=== PATIENT | male | born 1990 | race Caucasian/White ===

== ENCOUNTER → 2016-04-27 | Outpatient (CLI) | payer BC ==
[~2016-04-27] MED LIST: ACETAMINOPHEN TAB 500 MG TAB PO ONE; LORATADINE 10 MG TAB PO ONE; SODIUM CHLORIDE 0.9% 250 ML in EMPTY BAG 1 BAG IV PRN; SODIUM CHLORIDE 0.9% 500 ML in EMPTY BAG 1 BAG IV PRN
[2016-04-27 09:28] VITALS: TEMP 99.5
[2016-04-27 09:52] VITALS: RESP 18
[2016-04-27 11:02] VITALS: BP 118/58; PULSE 68
== END | disposition home or self-care (01) ==
LOC: PROCWHC3 09:06
DX: K50.80 Crohn's disease of both small and large intestine without complications (principal)
CPT/HCPCS: 96361; 96413; 96415; J1745

== ENCOUNTER 2016-06-22 09:00 | Outpatient (CLI) | payer BC ==
[~2016-06-22 09:00] MED LIST changes: -ACETAMINOPHEN TAB 500 MG TAB PO ONE; -LORATADINE 10 MG TAB PO ONE
[2016-06-22 09:33] VITALS: TEMP 98.1
[2016-06-22 10:47] VITALS: RESP 16
[2016-06-22 11:12] VITALS: BP 122/58; PULSE 74
== END 2016-06-22 14:02 | disposition home or self-care (01) ==
LOC: PROCWHC3 09:00
DX: K50.80 Crohn's disease of both small and large intestine without complications (principal)
CPT/HCPCS: 96413; 96415; J1745; 96361

== ENCOUNTER → 2016-08-22 | Outpatient (CLI) | payer BC ==
[2016-08-22 09:01] VITALS: TEMP 98
[2016-08-22 10:46] VITALS: BP 126/66; PULSE 69; RESP 16
== END | disposition home or self-care (01) ==
LOC: PROCWHC3 08:45
PROVIDERS: ATTEND Physician Assistant
DX: K50.80 Crohn's disease of both small and large intestine without complications (principal)
CPT/HCPCS: 96413; 96415; J1745

== ENCOUNTER → 2016-10-19 | Outpatient (CLI) | payer BC ==
[2016-10-19 09:14] VITALS: RESP 16; TEMP 97.8
[2016-10-19 10:52] VITALS: BP 97/62; PULSE 61
== END | disposition home or self-care (01) ==
LOC: PROCWHC3 08:47
PROVIDERS: ATTEND Physician Assistant
DX: K50.80 Crohn's disease of both small and large intestine without complications (principal)
CPT/HCPCS: 96413; 96415; J1745

== ENCOUNTER → 2016-12-21 | Outpatient (CLI) | payer BC ==
[~2016-12-21] MED LIST changes: -SODIUM CHLORIDE 0.9% 250 ML in EMPTY BAG 1 BAG IV PRN
[2016-12-21 09:15] VITALS: RESP 18; TEMP 97.6
[2016-12-21 10:46] VITALS: BP 118/73; PULSE 60
== END | disposition home or self-care (01) ==
LOC: PROCWHC3 08:44
PROVIDERS: ATTEND Physician Assistant
DX: K50.80 Crohn's disease of both small and large intestine without complications (principal)
CPT/HCPCS: 96361; 96413; 96415; J1745

== ENCOUNTER → 2017-02-15 | Outpatient (CLI) | payer BC ==
[2017-02-15 10:56] LABS: CH 31.5; CHCM 34.4; HDW 2.82; HGB 16.5 gm/dL (13.0-17.5); MCH 30.9 pg (25.0-35.0); MCHC 33.6 g/dL (31.0-37.0); Mean Platelet Volume 7.5; RBC 5.33 m/uL (4.30-5.90); RDW 12.6 % (11.5-15.5); WBC 9.3 k/uL (3.8-10.6)
[2017-02-15 11:06] VITALS: TEMP 98.6
[2017-02-15 11:50] VITALS: BP 113/59; PULSE 58; RESP 18
[2017-02-15 12:18] LABS: ALT 35 U/L (21-72); AST 25 U/L (17-59); Alkaline Phosphatase 64 U/L (38-126); Anion Gap 13 mmol/L; Bilirubin, Delta 0.4 mg/dL (0.0-0.2); Blood Urea Nitrogen 18 mg/dL (9-20); Calcium 9.8 mg/dL (8.4-10.2); Carbon Dioxide 23 mmol/L (22-30); Chloride 105 mmol/L (98-107); Glucose 121 mg/dL (74-99); Non-African American GFR(MDRD) >60 (>60 ml/min/1.73 sqM); Potassium 3.9 mmol/L (3.5-5.1); Sodium 141 mmol/L (137-145); Total Bilirubin 1.1 mg/dL (0.2-1.3); Total Protein 7.5 g/dL (6.3-8.2)
[2017-02-15 12:24] LABS: Erythrocyte Sedimentation Rate 2 mm/hr (0-15)
[2017-02-15 13:30] LABS: C Reactive Protein <5.0 mg/L (<10.0)
== END | disposition home or self-care (01) ==
LOC: PROCWHC3 10:02
PROVIDERS: ATTEND Physician Assistant
DX: K50.80 Crohn's disease of both small and large intestine without complications (principal)
CPT/HCPCS: 80053; 85652; 84443; 82607; 82248; 82746; 85027; 86140; 82306; 83036; 96413; 96415; 36415; J1745

== ENCOUNTER → 2017-04-24 | Outpatient (CLI) | payer BC | END | disposition home or self-care (01) | LOC: LABWHC1 12:51 | DX: K50.80 Crohn's disease of both small and large intestine without complications (principal) | CPT/HCPCS: 36415; 86480 ==

== ENCOUNTER 2017-09-30 08:41 | Day surgery (SDC) | payer BC ==
[2017-09-26 14:44] VITALS: BMI 39.5
[~2017-09-30 08:41] MED LIST changes: +LACTATED RINGERS 1,000 ML IV SCH; -SODIUM CHLORIDE 0.9% 500 ML in EMPTY BAG 1 BAG IV PRN
[2017-09-30 09:10] VITALS: RESP 16; TEMP 97.6
[2017-09-30] MEDS ORDERED: LIDOCAINE 1% 20 ML VIAL (10MG/ML) FOR IV START INTRADERMA ONE (09:14)
[2017-09-30] MEDS ORDERED: PROPOFOL 10 MG/ML 20 ML VIAL IV ONE (10:08)
[2017-09-30 10:33] VITALS: PULSE 71
--- NOTE | 2017-09-30 10:38 | P.PCN ---
Date of Procedure: 09/30/17 Procedure(s) Performed: Procedure: Colonoscopy and biopsy. Preoperative diagnosis: History of Crohn's disease. Postoperative diagnosis: Exam within colon and terminal ileum within normal limits, biopsies obtained. Preparation: HalfLytely prep. Sedation: Was provided by anesthesia. Brief clinical history: The patient is a 27-year-old male who was diagnosed at age 13 with Crohn's of the colon and small intestine and has required biologic therapy for the last 3 or 4 years in the form of Remicade. Prior to that he was on Imuran and anti-inflammatory medications. The patient has been doing well without any abdominal complaints or change in bowel habits. This evaluation as part of his surveillance because of the duration of his disease and to assess his on admission. Procedure: With the patient on his left lateral decubitus position and after informed consent and adequate sedation, the perianal area was inspected and it did not show any fissures or fistulas. There were no masses felt on digital rectal examination. The Olympus CFQ 160L video colonoscope was then inserted in the rectum in the usual fashion and advanced to the cecum. I intubated the ileocecal valve and examined the terminal ileum as well. Terminal ileum and colon appeared healthy with no edema erythema friability ulceration and exudation or spontaneous bleeding. No polyps or tumors were seen or any obvious diverticular disease or other pathology. I retroflexed the endoscope in the rectum before the endoscope was withdrawn and I obtained biopsies from the terminal ileum and randomly from the colon as well. The patient tolerated the procedure well. Plan: The patient was reassured and I discussed with him and with his father who was with him today. Will continue with the current regimen and follow-up plans. Because of the duration of his illness I will be considering colonoscopy in 3-5 years.
[2017-09-30 11:01] VITALS: BP 119/79
== END 2017-09-30 11:15 | disposition home or self-care (01) ==
LOC: ORWHC2ENDO 08:41
DX: K50.80 Crohn's disease of both small and large intestine without complications (principal); Z79.899 Other long term (current) drug therapy
CPT/HCPCS: 88305; 45380; J2704

== ENCOUNTER 2019-07-04 04:10 | Inpatient (IN) | payer BC ==
--- NOTE | 2019-07-04 04:38 | ED ---
Psych HPI - General Source: patient Mode of arrival: ambulatory - History of Present Illness MD Complaint: suicidal ideation, feels depressed -: month(s) Associated Psychiatric Symptoms: depression, suicidal ideation History of same: No Quality: changing over time Improves With: none Worsens With: none Associated Symptoms: denies other symptoms <Anibal Weinberg - Last Filed: 07/04/19 04:53> <Star Lee - Last Filed: 07/04/19 08:00> - General Chief Complaint: Psychiatric Symptoms Stated Complaint: Mental Health Time Seen by Provider: 07/04/19 04:24 - History of Present Illness Initial Comments: This patient is 29-year-old man who presents to be evaluated for worsening depression as well as some suicidal ideation. The patient states that his mood is been worsening going on for probably a couple months now. Patient states that he has also started having thoughts of suicide. (Anibal Weinberg) - Related Data Home Medications Medication Instructions Recorded Confirmed Cyanocobalamin [Vitamin B-12] 2,000 mcg PO DAILY 07/18/15 09/30/17 Iron 18 mg PO DAILY 07/18/15 09/30/17 inFLIXimab [Remicade] 600 mg IVPB DIRECTED 04/27/16 09/30/17 Cholecalciferol [Vitamin D3] 5,000 unit PO DAILY 09/26/17 09/30/17 Allergies Allergy/AdvReac Type Severity Reaction Status Date / Time No Known Allergies Allergy Verified 09/26/17 14:34 Review of Systems ROS Other: All systems not noted in ROS Statement are negative. Constitutional: Denies: fever Respiratory: Denies: cough, dyspnea Cardiovascular: Denies: chest pain, palpitations, edema Gastrointestinal: Denies: abdominal pain, vomiting, diarrhea Musculoskeletal: Denies: back pain Skin: Denies: rash Neurological: Denies: headache, weakness Psychiatric: Reports: depression, suicidal thoughts. Denies: auditory hallucinations, visual hallucinations, homicidal thoughts <Anibal Weinberg - Last Filed: 07/04/19 04:53> ROS Other: All systems not noted in ROS Statement are negative. <Star Lee - Last Filed: 07/04/19 08:00> ROS Statement: Those systems with pertinent positive or pertinent negative responses have been documented in the HPI. Past Medical History Past Medical History: Diabetes Mellitus Additional Past Medical History / Comment(s): Chron's disease History of Any Multi-Drug Resistant Organisms: None Reported Past Surgical History: No Surgical Hx Reported Additional Past Surgical History / Comment(s): Colonoscopy X3-4. Past Anesthesia/Blood Transfusion Reactions: No Reported Reaction Past Psychological History: No Psychological Hx Reported Smoking Status: Current every day smoker Past Alcohol Use History: Rare Past Drug Use History: Marijuana - Past Family History Mother Family Medical History: No Reported History <Anibal Weinberg - Last Filed: 07/04/19 04:53> General Exam Limitations: no limitations General appearance: alert, in no apparent distress Head exam: Present: atraumatic, normocephalic Eye exam: Present: normal appearance Respiratory exam: Present: normal lung sounds bilaterally. Absent: respiratory distress, wheezes, rales, rhonchi, stridor Cardiovascular Exam: Present: regular rate, normal rhythm, normal heart sounds. Absent: systolic murmur, diastolic murmur, rubs, gallop GI/Abdominal exam: Present: soft. Absent: distended, tenderness, guarding Neurological exam: Present: alert Psychiatric exam: Present: depressed, suicidal ideation. Absent: agitated, anxious, flat affect, manic, homicidal ideation Skin exam: Present: warm, dry, intact, normal color. Absent: rash <Anibal Weinberg - Last Filed: 07/04/19 04:53> Course Vital Signs 07/04/19 07/04/19 04:14 06:56 Temperature 98.5 F 98.1 F Pulse Rate 90 76 Respiratory 18 16 Rate Blood Pressure 168/112 132/87 O2 Sat by Pulse 97 98 Oximetry Medical Decision Making <Star Lee - Last Filed: 07/04/19 08:00> - Medical Decision Making I went in and evaluated the patient and determined that he did need to stay so I filled out a clinical certification. Patient will be admitted. (Star Lee) - Lab Data Lab Results 07/04/19 Range/Units 06:51 POC Glucose (mg/dL) 123 H (75-99) mg/dL POC Glu Field Project Manager ID Ernst, Tyler Disposition <Anibal Weinberg - Last Filed: 07/04/19 04:53> Time of Disposition: 08:00 <tSar Lee - Last Filed: 07/04/19 08:00> Clinical Impression: Suicidal ideation, Depression Disposition: ADMITTED IP TO THIS HOSP Referrals: Mart Marquez MD [Primary Care Provider] - 1-2 days
[2019-07-04 06:53] LABS: Glucose,Whole Blood 123 mg/dL (75-99)
[2019-07-04] MEDS ORDERED: MAGNESIUM HYDROXIDE 2,400 MG/10 ML CUP PO PRN (08:39)
[2019-07-04] MEDS ORDERED: ACETAMINOPHEN TAB 325 MG TAB PO PRN (08:39)
[2019-07-04] MEDS ORDERED: MAG HYDROX/AL HYDROX/SIMETH 30 ML CUP PO PRN (08:39)
[2019-07-04] MEDS ORDERED: INSULIN DETEMIR (LEVEMIR) 100 UNIT/ML SYR SQ SCH (09:30)
[2019-07-04 09:37] LABS: Glucose,Whole Blood 113 mg/dL (75-99)
[2019-07-04] MEDS: CHOLECALCIFEROL 1,000 UNIT TAB PO SCH (09:41)
[2019-07-04] MEDS: LISINOPRIL 5 MG TAB PO SCH (09:41)
[2019-07-04] MEDS: metFORMIN 500 MG TAB PO SCH ×2 (09:42→17:50)
[2019-07-04] MEDS: NICOTINE 14MG/24HR PATCH TRANSDERM SCH ×2 (09:42→15:51)
[2019-07-04 12:40] LABS: Glucose,Whole Blood 112 mg/dL (75-99)
[2019-07-04] MEDS: INSULIN ASPART (NovoLOG) 100 UNIT/ML VIAL SQ SCH ×3 (12:40→20:18)
--- NOTE | 2019-07-04 12:42 | P.CONS ---
History of Present Illness - History of Present Illness This is a pleasant 29 years old male with past medical history of diabetes m ellitus, hypertension, Crohn's disease. He was admitted to the mental health unit for signs symptoms of depression with suicidal ideation. Medical consult was requested for medical management. Patient denies any physical complaints to me, like no chest pain or dyspnea, no headache, no abdominal pain, no change in urine or bowel habits, no nausea vomiting. No fever and patient smokes about 1 pack per day and occasional marijuana, no alcohol or illicit tracts as per patient Patient is counseled to quit alcohol Review of Systems CONSTITUTIONAL: No fever, no malaise, no fatigue. HEENT: No recent visual problems or hearing problems. Denied any sore throat. CARDIOVASCULAR: No orthopnea, PND, no palpitations, no syncope. PULMONARY: No shortness of breath, no cough, no hemoptysis. GASTROINTESTINAL: No diarrhea, no nausea, no vomiting, no abdominal pain. Normoactive bowel sounds. NEUROLOGICAL: No headaches, no weakness, no numbness. HEMATOLOGICAL: Denies any bleeding or petechiae. GENITOURINARY: Denies any burning micturition, frequency, or urgency. MUSCULOSKELETAL/RHEUMATOLOGICAL: Denies any joint pain, swelling, or any muscle pain. ENDOCRINE: Denies any polyuria or polydipsia. Past Medical History Past Medical History: Diabetes Mellitus Additional Past Medical History / Comment(s): Chron's disease History of Any Multi-Drug Resistant Organisms: None Reported Past Surgical History: No Surgical Hx Reported Additional Past Surgical History / Comment(s): Colonoscopy X3-4. Past Anesthesia/Blood Transfusion Reactions: No Reported Reaction Past Psychological History: No Psychological Hx Reported Smoking Status: Current every day smoker Past Alcohol Use History: Rare Past Drug Use History: Marijuana - Past Family History Mother Family Medical History: No Reported History Medications and Allergies Home Medications Medication Instructions Recorded Confirmed Type Cyanocobalamin [Vitamin B-12] 2,000 mcg PO DAILY 07/18/15 07/04/19 History inFLIXimab [Remicade] 600 mg IVPB DIRECTED 04/27/16 09/30/17 History Cholecalciferol [Vitamin D3] 5,000 unit PO DAILY 09/26/17 07/04/19 History Insulin Glargine [Lantus] 20 unit SQ DAILY 07/04/19 07/04/19 History Lisinopril [Prinivil] 5 mg PO DAILY 07/04/19 07/04/19 History metFORMIN HCL 1,000 mg PO BID 07/04/19 07/04/19 History Allergies Allergy/AdvReac Type Severity Reaction Status Date / Time No Known Allergies Allergy Verified 09/26/17 14:34 Physical Exam Vitals: Vital Signs Temp Pulse Pulse Resp BP BP Pulse Ox 07/04/19 10:02 97.4 F L 78 20 145/81 07/04/19 06:56 98.1 F 76 16 132/87 98 07/04/19 04:14 98.5 F 90 18 168/112 97 Intake and Output 07/03/19 07/04/19 07/04/19 22:59 06:59 14:59 Other: Weight 122.47 kg 122.47 kg GENERAL: The patient is alert and oriented x3, not in any acute distress. Well developed, well nourished. HEENT: Pupils are round and equally reacting to light. EOMI. No scleral icterus. No conjunctival pallor. Normocephalic, atraumatic. No pharyngeal erythema. No thyromegaly. CARDIOVASCULAR: S1 and S2 present. No murmurs, rubs, or gallops. PULMONARY: Chest is clear to auscultation, no wheezing or crackles. ABDOMEN: Soft, nontender, nondistended, normoactive bowel sounds. No palpable organomegaly. MUSCULOSKELETAL: No joint swelling or deformity. EXTREMITIES: No cyanosis, clubbing, or pedal edema. NEUROLOGICAL: Gross neurological examination did not reveal any focal deficits. SKIN: No rashes. No petechiae Results Labs: Abnormal Lab Results - Last 24 Hours (Table) 07/04/19 07/04/19 Range/Units 06:51 09:35 POC Glucose (mg/dL) 123 H 113 H (75-99) mg/dL Assessment and Plan Assessment: Depression and suicidal ideation and other psychiatric illnesses: As per primary psych team Nicotine dependence: Patient is counseled, he wants to quit. Nicotine patches ordered Type 2 diabetes mellitus, continue with metformin and insulin Essential hypertension: Continue with lisinopril History of Crohn's disease, not an active issue DVT prophylaxis: Low risk, patient is mobile. No need for heparin recommend patient follow up with his PCP Dr. Marquez in 1 week and patient was instructed with the same Thank you for consulting us, we will see the patient on as-needed basis. Please feel free to contact us for any further question or clarification
--- NOTE | 2019-07-04 15:13 | P.HP ---
Psychiatric H&P - . H&P Date: 07/04/19 History & Physical: Allergies Allergy/AdvReac Type Severity Reaction Status Date / Time No Known Allergies Allergy Verified 09/26/17 14:34 Vital Signs Temp 97.4 F L 07/04/19 10:02 Pulse 78 07/04/19 10:02 Resp 20 07/04/19 10:02 BP 145/81 07/04/19 10:02 Pulse Ox 98 07/04/19 06:56 Intake & Output 07/03/19 07/04/19 07/04/19 18:59 06:59 18:59 Weight 122.47 kg 122.47 kg Laboratory Last Values POC Glucose (mg/dL) 112 mg/dL (75-99) H 07/04/19 12:38 POC Glu Plant Maintenance Mechanic ID Vanessa Wilder 07/04/19 12:38 07/04/19 15:06 IDENTIFYING DATA: 29-year-old single male patient HPI: Patient admitted to the inpatient psychiatric unit on an involuntary basis. Petition was done by registered nurse stating "patient admitted to this RN that he is having active suicidal thoughts with various plans, also admitted to not feeling safe to leave the ER as he may act on his thoughts." Patient reports that he has been having depression and his anxiety levels been really increased. He states that his girlfriend recently walked out 3-4 days ago and he has not had contact with her since. This is had him stressed out. He states that things were very slow at his work and he came to the hospital in the a.m. because he was having thoughts of having an emotional breakdown. Says he didn't want to feel like that. He says he didn't want to . It was more or less the anxiety that he was dealing with. He says later in the session that he didn't want to continue to live like that or feel like that, didn't want to impulsively do something like run a red light. He has not had much of an appetite lately is also been on intentionally undereating because his blood sugar has not been under good control. PAST PSYCHIATRIC HISTORY: He has never had any history of psychiatric treatment. He has had some periods of situational depression. He also does give a history of anxiety with over thinking things. He denies any history of suicide attempts. PMH: Diabetes mellitus, Crohn's disease which she says right now is in remission. He does take Remicade infusions. He was recently hospitalized for abscesses due to lowered immune system. ALLERGIES: No known ALLERGIES. MEDICATIONS: Tylenol when necessary, Maalox when necessary, vitamin D3, Levemir, Zestril, Ativan when necessary, milk of magnesia when necessary, Glucophage, Hab itrol patch CHEMICAL DEPENDENCY HISTORY: Patient states in a year he can count on one hand his amount of alcohol use. On average he has underwent one pack per day of smoking cigarettes but lately has been increased. FAMILY PSYCHIATRIC HISTORY: Denies FAMILY CHEMICAL DEPENDENCY HISTORY: None known at this time. SOCIAL HISTORY: He did live with his girlfriend in a home but she has now left several is living by himself. He does not have any children. He has never been . He has one brother. He currently works at [employer] full-time. MENTAL STATUS EXAM: He is alert and cooperative with the interview. His mood is described as "self pity." He is tearful at times during the session. He denies any history of hallucinations. He denies any current thoughts of harm to self or others. No active evidence of psychosis. I do not note any disorder agitation, do not note any significant memory disturbance. His insight is adequate, judgment shows evidence evidence of recent impairment. STRENGTHS/WEAKNESSES: Strengthssome supports; weaknessescoping skills INTELLECTUAL FUNCTIONING: Average IMPRESSIONS: Unspecified depressive disorder; unspecified anxiety disorder, rule out generalized anxiety disorder PLAN: Patient was admitted to the inpatient psychiatric unit on an involuntary basis, he is agreeable to sign an adult formal voluntary form. He'll be placed on SP 15 minute precautions. Baseline laboratory workup will be done the patient and medical consultation will be ordered. He'll participate in group and activity therapies. We will initiate low dose of Zoloft to help both depressive and anxiety components, we'll start low-dose and monitor for any medication side effects. We will look into support systems. Estimated length of stay is 3-5 days. Prognosis is guarded.
[2019-07-04] MEDS: SERTRALINE 25 MG TAB PO SCH (15:50)
[2019-07-04 17:30] LABS: Glucose,Whole Blood 111 mg/dL (75-99)
[2019-07-04] MEDS: INSULIN DETEMIR (LEVEMIR) 100 UNIT/ML SYR SQ SCH (17:39)
[2019-07-04 19:58] LABS: Glucose,Whole Blood 195 mg/dL (75-99)
[2019-07-05 06:30] VITALS: RESP 16
[2019-07-05 07:50] LABS: Glucose,Whole Blood 126 mg/dL (75-99)
[2019-07-05] MEDS: metFORMIN 500 MG TAB PO SCH ×3 (07:57→17:32)
[2019-07-05] MEDS: CHOLECALCIFEROL 1,000 UNIT TAB PO SCH (07:57)
[2019-07-05] MEDS: NICOTINE 14MG/24HR PATCH TRANSDERM SCH (07:57)
[2019-07-05] MEDS: SERTRALINE 25 MG TAB PO SCH (07:58)
[2019-07-05] MEDS: LISINOPRIL 5 MG TAB PO SCH (07:58)
[2019-07-05] MEDS: INSULIN ASPART (NovoLOG) 100 UNIT/ML VIAL SQ SCH ×4 (08:01→20:21)
[2019-07-05 08:28] LABS: Basophils # (A) 0.1 k/uL (0-0.2); Basophils % (A) 1 %; Eosinophils # (A) 0.5 k/uL (0-0.7); Eosinophils % (A) 3 %; HCT 51.9 % (39.0-53.0); HGB 17.2 gm/dL (13.0-17.5); Lymphocytes # (A) 4.2 k/uL (1.0-4.8); Lymphocytes % (A) 28 %; MCH 28.9 pg (25.0-35.0); MCHC 33.1 g/dL (31.0-37.0); MCV 87.5 fL (80.0-100.0); Mean Platelet Volume 7.5; Monocytes # (A) 0.8 k/uL (0-1.0); Monocytes % (A) 5 %; Neutrophils # (A) 9.2 k/uL (1.3-7.7); Neutrophils % (A) 61 %; Platelet Count 430 k/uL (150-450); RBC 5.93 m/uL (4.30-5.90)
[2019-07-05 08:31] LABS: ALT 22 U/L (4-49); AST 24 U/L (17-59); African American GFR (CKD) >90 (>60 ml/min/1.73 sqM); Alkaline Phosphatase 92 U/L (38-126); Anion Gap 14 mmol/L; Blood Urea Nitrogen 11 mg/dL (9-20); Calcium 10.1 mg/dL (8.4-10.2); Carbon Dioxide 22 mmol/L (22-30); Chloride 102 mmol/L (98-107); Glucose 116 mg/dL (74-99); Non-African American GFR(CKD) >90 (>60 ml/min/1.73 sqM); Potassium 4.3 mmol/L (3.5-5.1); Sodium 138 mmol/L (137-145); Total Bilirubin 1.4 mg/dL (0.2-1.3); Total Protein 8.4 g/dL (6.3-8.2)
[2019-07-05 12:19] LABS: Glucose,Whole Blood 181 mg/dL (75-99)
--- NOTE | 2019-07-05 15:27 | P.PN ---
Progress Note - Text Progress Note Date: 07/05/19 Interval history: Patient is seen again in cross coverage today. He seems to be tolerating the Zoloft fine. He seems to describe feeling less overwhelmed, less anxious and more able to focus on getting help. He does describe feeling that he is ready for discharge soon. He talks about a support person being a friend that he had made contact with prior to hospitalization. Mental status exam: He is alert and cooperative with the interview. His speech is fluent, not rapid or pressured. Overall his mood seems to be improved and seems to have less level of anxiety. He does not verbalize any current thoughts of harm to self and does not voice any thoughts of harm to others. No evidence of active psychosis or agitation. Plan: Patient will be maintained on Zoloft, continue to monitor for any medication side effects and monitor his ongoing response to treatment.
[2019-07-05 17:27] LABS: Glucose,Whole Blood 172 mg/dL (75-99)
[2019-07-05] MEDS: INSULIN DETEMIR (LEVEMIR) 100 UNIT/ML SYR SQ SCH (17:30)
[2019-07-05 19:46] LABS: Glucose,Whole Blood 275 mg/dL (75-99)
[2019-07-06] MEDS: LORazepam 1 MG TAB PO PRN ×2 (01:55→22:20)
[2019-07-06] MEDS: INSULIN ASPART (NovoLOG) 100 UNIT/ML VIAL SQ SCH ×4 (08:11→20:14)
[2019-07-06] MEDS: NICOTINE 14MG/24HR PATCH TRANSDERM SCH (08:11)
[2019-07-06] MEDS: metFORMIN 500 MG TAB PO SCH ×2 (08:12→18:01)
[2019-07-06] MEDS: CHOLECALCIFEROL 1,000 UNIT TAB PO SCH (08:12)
[2019-07-06] MEDS: LISINOPRIL 5 MG TAB PO SCH (08:12)
[2019-07-06] MEDS: SERTRALINE 25 MG TAB PO SCH (08:12)
[2019-07-06 08:22] LABS: Glucose,Whole Blood 107 mg/dL (75-99)
[2019-07-06 11:16] LABS: Hemoglobin A1C 8.5 % (4.0-6.0)
[2019-07-06 12:28] LABS: Glucose,Whole Blood 147 mg/dL (75-99)
--- NOTE | 2019-07-06 13:05 | P.PN ---
Subjective Progress Note Date: 07/06/19 The patient seen in the chart was reviewed. The patient reports feeling a little better. He reports feeling less depressed and anxious. He denies any negative thoughts at this time. The patient reports difficulty falling asleep last night but was able to sleep for 6 hours. He reports good appetite. The patient is focused on wanting to get discharged as soon as possible. The patient reports compliance with this treatment and has been cooperative and pleasant during the interview. The patient denies any auditory or visual hallucinations. He denies any active suicidal homicidal or paranoid ideations at this time. Objective - Vital Signs Vital signs: Vital Signs Temp 98.3 F 07/06/19 06:31 Pulse 68 07/06/19 06:31 Resp 16 07/06/19 06:31 BP 125/70 07/06/19 06:31 Pulse Ox 97 07/06/19 06:31 Intake & Output 07/05/19 07/06/19 07/06/19 18:59 06:59 18:59 Weight 123 kg - Exam Mental Status Exam: General Appearance: Patient appears to be stated age is alert, directable. fPatient has fair eye contact. Behavior: Patient is seated without any agitated behavior. Speech: Patient's speech is goal-directed and nonpressured. soft tone. Mood/Affect: Patient reports their mood/anxiety is improving and affect is congruent Suicidality/Homicidality: Patient reports not having suicidal or homicidal ideation. Perceptions: Patient reports no auditory or visual hallucinations. Though content/process: Denies any delusions or Paranoia Memory and concentration: AOX3, grossly intact for the purposes of this session. Judgment and insight: Fair - Labs CBC & Chem 7: 07/05/19 08:02 07/05/19 08:02 Labs: Abnormal Lab Results - Last 24 Hours (Table) 07/05/19 07/05/19 07/05/19 Range/Units 08:02 17:25 19:45 POC Glucose (mg/dL) 172 H 275 H (75-99) mg/dL Hemoglobin A1c 8.5 H (4.0-6.0) % 07/06/19 07/06/19 Range/Units 08:10 12:27 POC Glucose (mg/dL) 107 H 147 H (75-99) mg/dL Hemoglobin A1c (4.0-6.0) % Assessment and Plan Assessment: Generalized anxiety disorder Major depressive disorder Plan: PLAN: Continue inpatient level of care due to need for further stabilization on medications Provide the patient individual, group therapy, substance use disorder counseling to give better insight and learn coping skills. Medications: Discussed increase in Zoloft to 50 mg by mouth every morning, the patient declined at this time. Continue Zoloft 25 mg by mouth every morning and monitor closely for any signs or symptoms getting worse or side effects on the medications. Will initiate discharge planning Discharge patient to OUTPATIENT services upon a stabilization Expected LOS: 3-5 days
[2019-07-06 17:40] LABS: Glucose,Whole Blood 201 mg/dL (75-99)
[2019-07-06] MEDS: INSULIN DETEMIR (LEVEMIR) 100 UNIT/ML SYR SQ SCH (17:52)
[2019-07-06 20:11] LABS: Glucose,Whole Blood 267 mg/dL (75-99)
[2019-07-07 07:55] LABS: Glucose,Whole Blood 118 mg/dL (75-99)
[2019-07-07] MEDS: INSULIN ASPART (NovoLOG) 100 UNIT/ML VIAL SQ SCH ×4 (07:57→20:09)
[2019-07-07] MEDS: metFORMIN 500 MG TAB PO SCH ×2 (08:51→17:50)
[2019-07-07] MEDS: LISINOPRIL 5 MG TAB PO SCH (08:51)
[2019-07-07] MEDS: CHOLECALCIFEROL 1,000 UNIT TAB PO SCH (08:51)
[2019-07-07] MEDS: NICOTINE 14MG/24HR PATCH TRANSDERM SCH (08:51)
[2019-07-07] MEDS: SERTRALINE 25 MG TAB PO SCH (08:51)
--- NOTE | 2019-07-07 12:25 | P.PN ---
Subjective Progress Note Date: 07/07/19 The patient seen in the chart was reviewed. The patient continues to report improvement in mood and functioning and tends to minimize his symptoms. The patient reports periods of anxiety and reports shaking his legs when anxious. The patient reports fair sleep and appetite. He remained focused on wanting to get get discharged from the hospital as soon as possible. The patient reports compliance with the treatment but believes that he would do better after he is discharged from the hospital. The patient shows limited insight into his loss. The patient denies any auditory or visual hallucinations. He denies any active suicidal homicidal or paranoid ideations at this time. Objective - Vital Signs Vital signs: Vital Signs Temp 97.7 F 07/07/19 06:05 Pulse 95 07/07/19 09:03 Resp 16 07/07/19 09:03 BP 137/87 07/07/19 09:03 Pulse Ox 99 07/07/19 06:05 - Exam Mental Status Exam: General Appearance: Patient appears to be stated age is alert, directable. fPatient has fair eye contact. Behavior: Patient is seated without any agitated behavior. Speech: Patient's speech is goal-directed and nonpressured. soft tone. Mood/Affect: Patient reports their mood/anxiety is improving and affect is congruent Suicidality/Homicidality: Patient reports not having suicidal or homicidal ideation. Perceptions: Patient reports no auditory or visual hallucinations. Though content/process: Denies any delusions or Paranoia Memory and concentration: AOX3, grossly intact for the purposes of this session. Judgment and insight: Fair - Labs CBC & Chem 7: 07/05/19 08:02 07/05/19 08:02 Labs: Abnormal Lab Results - Last 24 Hours (Table) 07/06/19 07/06/19 07/06/19 Range/Units 12:27 17:39 20:06 POC Glucose (mg/dL) 147 H 201 H 267 H (75-99) mg/dL 07/07/19 Range/Units 07:53 POC Glucose (mg/dL) 118 H (75-99) mg/dL Assessment and Plan Assessment: Generalized anxiety disorder Major depressive disorder Plan: PLAN: Continue inpatient level of care due to need for further stabilization on medica tions Provide the patient individual, group therapy, substance use disorder counseling to give better insight and learn coping skills. Medications: Discussed increase in Zoloft to 50 mg by mouth every morning, the patient declined at this time. Continue Zoloft 25 mg by mouth every morning and monitor closely for any signs or symptoms getting worse or side effects on the medications. Will initiate discharge planning Discharge patient to OUTPATIENT services upon a stabilization Expected LOS: 3-5 days
[2019-07-07 12:31] LABS: Glucose,Whole Blood 157 mg/dL (75-99)
[2019-07-07 17:36] LABS: Glucose,Whole Blood 175 mg/dL (75-99)
[2019-07-07] MEDS: INSULIN DETEMIR (LEVEMIR) 100 UNIT/ML SYR SQ SCH (17:48)
[2019-07-07 20:01] LABS: Glucose,Whole Blood 262 mg/dL (75-99)
[2019-07-07] MEDS: LORazepam 1 MG TAB PO PRN (23:02)
[2019-07-08 07:04] VITALS: TEMP 97.6
[2019-07-08 07:51] LABS: Glucose,Whole Blood 133 mg/dL (75-99)
[2019-07-08] MEDS: INSULIN ASPART (NovoLOG) 100 UNIT/ML VIAL SQ SCH ×2 (08:16→12:12)
[2019-07-08] MEDS: CHOLECALCIFEROL 1,000 UNIT TAB PO SCH (08:19)
[2019-07-08] MEDS: metFORMIN 500 MG TAB PO SCH (08:19)
[2019-07-08] MEDS: SERTRALINE 25 MG TAB PO SCH (08:19)
[2019-07-08] MEDS: LISINOPRIL 5 MG TAB PO SCH (08:19)
[2019-07-08] MEDS: NICOTINE 14MG/24HR PATCH TRANSDERM SCH (08:19)
[2019-07-08 08:23] VITALS: BP 123/97; PULSE 89
--- NOTE | 2019-07-08 10:47 | P.DS ---
Providers Date of admission: 07/04/19 08:31 Attending physician: Della Jade MD Consults: 07/04/19 08:39 Consult Physician Routine Consulting Provider: Mart Marquez Consult Reason/Comments: H and P Do you want consulting provider notified?: Yes Primary care physician: Mart Marquez Hospital Course: Discharge Diagnosis: Major depressive disorder recurrent severe. Generalized anxiety disorder. Hospital Course: Patient admitted to the inpatient psychiatric unit [facility] on an involuntary basis. Petition was done by registered nurse stating "patient admitted to this RN that he is having active suicidal thoughts with various plans, also admitted to not feeling safe to leave the ER as he may act on his thoughts." Patient reports that he has been having depression and his anxiety levels been really increased. He states that his girlfriend recently walked out 3-4 days ago and he has not had contact with her since. This is had him stressed out. He states that things were very slow at his work and he came to the hospital in the a.m. because he was having thoughts of having an emotional breakdown. Says he didn't want to feel like that. He says he didn't want to . It was more or less the anxiety that he was dealing with. He says later in the session that he didn't want to continue to live like that or feel like that, didn't want to impulsively do something like run a red light. He has not had much of an appetite lately is also been on intentionally undereating because his blood sugar has not been under good control. PAST PSYCHIATRIC HISTORY: He has never had any history of psychiatric treatment. He has had some periods of situational depression. He also does give a history of anxiety with over thinking things. He denies any history of suicide attempts. PMH: Diabetes mellitus, Crohn's disease which she says right now is in remission. He does take Remicade infusions. He was recently hospitalized for abscesses due to lowered immune system. ALLERGIES: No known ALLERGIES. MEDICATIONS: Tylenol when necessary, Maalox when necessary, vitamin D3, Levemir, Zestril, Ativan when necessary, milk of magnesia when necessary, Glucophage, Habitrol patch CHEMICAL DEPENDENCY HISTORY: Patient states in a year he can count on one hand his amount of alcohol use. On average he has underwent one pack per day of smoking cigarettes but lately has been increased. FAMILY PSYCHIATRIC HISTORY: Denies FAMILY CHEMICAL DEPENDENCY HISTORY: None known at this time. SOCIAL HISTORY: He did live with his girlfriend in a home but she has now left several is living by himself. He does not have any children. He has never been . He has one brother. He currently works at [email or web address] full-time. MENTAL STATUS EXAM: He is alert and cooperative with the interview. His mood is described as "self pity." He is tearful at times during the session. He denies any history of hallucinations. He denies any current thoughts of harm to self or others. No active evidence of psychosis. I do not note any disorder agitation, do not note any significant memory disturbance. His insight is adequate, judgment shows evidence evidence of recent impairment. STRENGTHS/WEAKNESSES: Strengthssome supports; weaknessescoping skills INTELLECTUAL FUNCTIONING: Average Patient was admitted on a involuntary basis, placed on routine observation in group and activity therapy were ordered. He signed in voluntarily later on. Patient was also ordered routine laboratory studies, glucose checks with a sliding scale and a medical consultation was also ordered. Patient also was returned to his prior medications for his medical problems. The patient was started on sertraline 25 mg by mouth daily. He tolerated the medication without any significant side effects. He reported improvement in his mood and functioning. Patient was attending groups and activities, sleeping and eating well and reported that his mood had improved. Patient reported no side effects from the medication. Discharge plans were initiated. Follow on family meeting was done with the patient's friend. Patient will follow up at [facility]. Patient was agreeable with the plan for discharge and will follow up at [[facility]] Risk Assessment: Patient's risk for readmission is moderate to the patient not be compliant with medications and follow-up care, use alcohol and/or drugs Discharge Plan: Patient will be discharged [today] [facility] and will follow up at the [facility] clinic for his medical problems. Patient was encouraged to be compliant with medications and follow-up appointments and to avoid all alcohol and drugs. Patient Condition at Discharge: Stable Assessment: Discharge Mental Status: Appearance/Attitude: Patient is neatly and appropriately dressed, makes eye contact and was cooperative. Behavior: Patient did not display any psychomotor agitation or retardation. Speech/Language: Patient's speech was spontaneous of normal volume and rhythm and he was coherent Thought Process: Patient was goal-directed there is no evidence of loose association or flight of ideas Thought Content: Patient denied any auditory or visual hallucinations no delusions or paranoid ideation were elicited. Suicidal/Homicidal Ideation: Patient denies any current suicidal or homicidal ideation Sensorium/Cognition: Patient is alert and oriented to person, place, and time and his recent and remote memory were grossly intact Mood/Affect: Patient's mood is more positive and his affect is appropriate to his mood Insight/Judgment: Patient's insight and judgment are fair Patient Condition at Discharge: Stable Plan - Discharge Summary New Discharge Prescriptions: New Nicotine 14Mg/24Hr Patch [Habitrol] 1 patch TRANSDERM DAILY #14 patch INSULIN ASPART (NovoLOG) [NovoLOG (formulary)] 0 unit SQ ACHS vial Lisinopril [Zestril] 5 mg PO DAILY tab Sertraline [Zoloft] 25 mg PO DAILY #30 tab Continue Cyanocobalamin [Vitamin B-12] 2,000 mcg PO DAILY inFLIXimab [Remicade] 600 mg IVPB DIRECTED Cholecalciferol [Vitamin D3] 5,000 unit PO DAILY Insulin Glargine [Lantus] 20 unit SQ DAILY metFORMIN HCL 1,000 mg PO BID Discontinued Lisinopril [Prinivil] 5 mg PO DAILY Discharge Medication List Cyanocobalamin [Vitamin B-12] 2,000 mcg PO DAILY 07/18/15 [History] inFLIXimab [Remicade] 600 mg IVPB DIRECTED 04/27/16 [History] Cholecalciferol [Vitamin D3] 5,000 unit PO DAILY 09/26/17 [History] Insulin Glargine [Lantus] 20 unit SQ DAILY 07/04/19 [History] metFORMIN HCL 1,000 mg PO BID 07/04/19 [History] INSULIN ASPART (NovoLOG) [NovoLOG (formulary)] 0 unit SQ ACHS vial 07/08/19 [Rx] Lisinopril [Zestril] 5 mg PO DAILY tab 07/08/19 [Rx] Nicotine 14Mg/24Hr Patch [Habitrol] 1 patch TRANSDERM DAILY #14 patch 07/08/19 [Rx] Sertraline [Zoloft] 25 mg PO DAILY #30 tab 04/08/20 [Rx] Follow up Appointment(s)/Referral(s): [facility] [Outside] - 07/15/19 1:00 pm ([facility] Srinivasan) Mart Marquez MD [Primary Care Provider] - 1-2 days Activity/Diet/Wound Care/Special Instructions: Activity and diet as tolerated. Avoid the use of street drugs and alcohol. Take all medications as prescribed. When you are in need of refills on your medications please contact your medical provider and/or outpatient psychiatrist to have this done. Please go to scheduled outpatient appointment for aftercare treatment. If symptoms return or become worse, call the crisis line at and/or go to the nearest emergency room for evaluation. Discharge Disposition: HOME SELF-CARE
--- NOTE | 2019-07-08 10:51 | P.PN ---
Subjective Progress Note Date: 07/08/19 Discharge Note: Patient was seen and chart was reviewed. Case discussed with staff. The patient reports doing better and denies any new problems at this time. He admits to fair energy and fair appetite. He reports good sleep at night. At this time patient denies any suicidal or homical ideations, intent or plan. Patient denies any auditory, visual hallucinations and denies any paranoia or delusions. Patient denies any side effects from the medications and has been compliant with meds. Objective - Vital Signs Vital signs: Vital Signs Temp 97.6 F 07/08/19 06:41 Pulse 89 07/08/19 08:22 Resp 16 07/08/19 06:41 BP 123/97 07/08/19 08:22 Pulse Ox 99 07/08/19 06:41 - Exam Mental Status Exam: General Appearance: Patient appears to be stated age is alert, directable. fair hygiene and grooming. Patient has good eye contact. Behavior: Patient is seated without any agitated behavior. Appears to be less anxious Speech: Patient's speech is fluent and nonpressured. soft tone. Mood/Affect: Patient reports their mood/anxiety is improving, affect is congruent Suicidality/Homicidality: Patient denies having any suicidal or homicidal ideation intent or plan. Perceptions: Patient denies any auditory or visual hallucinations. Though content/process: There is no evidence of any delusional thought content and thought process is linear and goal-directed. Memory and concentration: AOX3, grossly intact for the purposes of this session. Judgment and insight: Fair - Labs CBC & Chem 7: 07/05/19 08:02 07/05/19 08:02 Labs: Abnormal Lab Results - Last 24 Hours (Table) 07/07/19 07/07/19 07/07/19 Range/Units 12:28 17:31 20:01 POC Glucose (mg/dL) 157 H 175 H 262 H (75-99) mg/dL 07/08/19 Range/Units 07:50 POC Glucose (mg/dL) 133 H (75-99) mg/dL Assessment and Plan Assessment: Generalized anxiety disorder Major depressive disorder Plan: Plan: -Family make meeting was done via phone with patient's friend. The patient will be discharged home and has good social supportwith his friends and family. -Medications: Continue Zoloft 25 mg by mouth daily. Continue -NRT - -Discharge home today to follow-up as an outpatient.
[2019-07-08 12:26] LABS: Glucose,Whole Blood 164 mg/dL (75-99)
== END 2019-07-08 13:14 | disposition home or self-care (01) | DRG 885 ==
LOC: EC 04:10 → 3MHU 08:31
PROVIDERS: ADMIT Psychiatry & Neurology Psychiatry; ATTEND Psychiatry & Neurology Psychiatry
DX: F33.2 Major depressive disorder, recurrent severe without psychotic features (principal); K50.90 Crohn's disease, unspecified, without complications; R45.851 Suicidal ideations; E11.9 Type 2 diabetes mellitus without complications; F17.210 Nicotine dependence, cigarettes, uncomplicated; F41.1 Generalized anxiety disorder; I10 Essential (primary) hypertension; Z79.4 Long term (current) use of insulin; Z79.899 Other long term (current) drug therapy
CPT/HCPCS: 36415; 80053; 82075; 83036; 84443; 85025; 99285

== ENCOUNTER → 2020-07-15 | Outpatient (CLI) | payer BC ==
[2020-07-15 19:23] LABS: Basophils # (A) 0.09 X 10*3/uL (0.00-0.10); Basophils % (A) 0.8 %; Eosinophils # (A) 0.23 X 10*3/uL (0.04-0.35); Eosinophils % (A) 2.1 %; HCT 46.8 % (39.6-50.0); HGB 15.9 g/dL (13.0-17.0); Lymphocytes # (A) 2.59 X 10*3/uL (0.90-5.00); Lymphocytes % (A) 23.7 %; MCH 31.3 pg (27.0-32.0); MCV 92.1 fL (80.0-97.0); Mean Platelet Volume 10.8 fL (9.5-12.2); Monocytes # (A) 0.52 X 10*3/uL (0.20-1.00); Monocytes % (A) 4.8 %; Neutrophils # (A) 7.46 X 10*3/uL (1.80-7.70); Neutrophils % (A) 68.2 %; Platelet Count 269 X 10*3/uL (140-440); RBC 5.08 X 10*6/uL (4.40-5.60); WBC 10.93 X 10*3/uL (4.50-10.00)
[2020-07-15 21:07] LABS: African American GFR (CKD) 134.2 (60.0-200.0); Albumin 4.4 g/dL (3.80-4.90); Albumin/Globulin Ratio 2.1 (1.60-3.17); Anion Gap 5.4 mmol/L (4.00-12.00); BUN/Creat Ratio 14.44 Ratio (12.00-20.00); Calcium 9.3 mg/dL (8.7-10.3); Carbon Dioxide 26.6 mmol/L (21.6-31.8); Globulin 2.1 g/dL (1.6-3.3); Non-African American GFR(CKD) 115.8 (60.0-200.0); Potassium 4.4 mmol/L (3.5-5.5); Total Bilirubin 0.6 mg/dL (0.2-1.2); Total Protein 6.5 g/dL (6.2-8.2)
[2020-07-15 22:45] LABS: Hepatitis B Surface AB- Quant >1000.0 mIU/mL; Hepatitis B Surface Antibody Reactive (Non-Reactive); Hepatitis B Surface Antigen Non-Reactive (Non-Reactive)
== END | disposition home or self-care (01) ==
LOC: LABWHC1 14:21
PROVIDERS: ATTEND Internal Medicine Gastroenterology
DX: K50.80 Crohn's disease of both small and large intestine without complications (principal)
CPT/HCPCS: 36415; 80053; 85025; 86480; 86706; 87340

== ENCOUNTER 2020-09-30 07:31 | Day surgery (SDC) | payer BC ==
[2020-09-29 08:31] VITALS: BMI 37.2
[2020-09-30 07:59] VITALS: TEMP 97.3
[2020-09-30] MEDS: LACTATED RINGERS 1,000 ML IV SCH ×2 (08:09→08:31)
[2020-09-30 08:11] LABS: Glucose,Whole Blood 186 mg/dL (75-99)
[2020-09-30] MEDS ORDERED: PROPOFOL 10 MG/ML 20 ML VIAL IV ONE (08:33)
--- NOTE | 2020-09-30 08:47 | P.PCN ---
Date of Procedure: 09/30/20 Procedure(s) Performed: BRIEF HISTORY: Patient is a 30-year-old pleasant white male scheduled for an elective colonoscopy as a part of surveillance of long-standing history of Crohn's colitis diagnosed at age 14. He remains on Remicade infusions since July 2004. He remains in clinical remission. He scheduled for a surveillance colonoscopy today. PROCEDURE PERFORMED: Colonoscopy random biopsy. PREOPERATIVE DIAGNOSIS: Long-standing history of Crohn's colitis diagnosed in 2003. IV sedation per Anesthesia. PROCEDURE: After informed consent was obtained, the patient, was brought into the endoscopy unit. IV sedation was administered by Anesthesia under continuous monitoring. Digital rectal examination was normal. Initially the Olympus CF-160 flexible video colonoscope was then inserted in the rectum, gradually advanced into the cecum without any difficulty. Careful examination was performed as the scope was gradually being withdrawn. Ileocecal valve and the appendiceal orifice were visualized and appeared normal. Prep was excellent. Terminal ileum was intubated and the mucosa appeared normal except for mild lymphoid hyperplasia. Mucosa of the cecum, ascending colon, transverse colon, descending colon, sigmoid colon, and rectum appeared normal. Random biopsies were done from the r ectum to cecum and intermittent centimeters into well. Retroflexion was performed in the rectum and no lesions were seen. The patient tolerated the procedure well. IMPRESSION: Normal-appearing colon from rectum to cecum with no evidence of active colitis or colorectal neoplasia . Normal-appearing terminal ileum. RECOMMENDATIONS: Findings of this examination were discussed with the patient as well as his family. He was advised to follow with the biopsy results. If there is no evidence of dysplasia he can have a repeat colonoscopy in 2 years.
[2020-09-30 09:07] VITALS: BP 115/75; PULSE 70; RESP 18
== END 2020-09-30 09:21 | disposition home or self-care (01) ==
LOC: ORWHC2ENDO 07:31
PROVIDERS: ATTEND Internal Medicine Gastroenterology
DX: K50.90 Crohn's disease, unspecified, without complications (principal); F17.210 Nicotine dependence, cigarettes, uncomplicated; F41.9 Anxiety disorder, unspecified; E11.9 Type 2 diabetes mellitus without complications; Z79.899 Other long term (current) drug therapy
CPT/HCPCS: 88305; 45380; J2704

== ENCOUNTER 2023-03-12 08:35 | Day surgery (SDC) | payer BC ==
[2023-03-08 09:47] VITALS: BMI 28.1
[~2023-03-12 08:35] MED LIST changes: +LIDOCAINE 1% (10MG/ML) FOR IV START INTRADERMA PRN
[2023-03-12 09:04] LABS: Glucose,Whole Blood 120 mg/dL (70-110)
[2023-03-12] MEDS ORDERED: PROPOFOL 10 MG/ML 20 ML VIAL IV ONE (09:10)
[2023-03-12 09:24] VITALS: RESP 16; TEMP 97.1
--- NOTE | 2023-03-12 09:38 | P.PCN ---
Date of Procedure: 03/12/23 Procedure(s) Performed: BRIEF HISTORY: Patient is a 32-year-old pleasant white male scheduled for an elective colonoscopy as a part of surveillance of long-standing history of Crohn's colitis diagnosed at age 14. He is maintained on Remicade infusions every 8 weeks and is in clinical remission. PROCEDURE PERFORMED: Colonoscopy with random biopsies. PREOPERATIVE DIAGNOSIS: Long-standing history of Crohn's colitis. IV sedation per Anesthesia. PROCEDURE: After informed consent was obtained, the patient, was brought into the endoscopy unit. IV sedation was administered by Anesthesia under continuous monitoring. Digital rectal examination was normal. Initially the Olympus CF-160 flexible video colonoscope was then inserted in the rectum, gradually advanced into the cecum without any difficulty. Careful examination was performed as the scope was gradually being withdrawn. Ileocecal valve and the appendiceal orifice were visualized and appeared normal. Prep was fair.. Mucosa of the cecum, ascending colon, transverse colon, descending colon, sigmoid colon, and rectum appeared normal. Biopsies were done from the cecum to rectum at every 10 cm intervals. Retroflexion was performed in the rectum and no lesions were seen. The patient tolerated the procedure well. IMPRESSION: Normal-appearing colon from rectum to cecum no evidence of colorectal neoplasia. RECOMMENDATIONS: Findings of this examination were discussed with the patient as his family. He was advised to follow with the biopsy results. If the biopsy does not show any evidence of dysplasia, recommend repeat colonoscopy in 2 years..
[2023-03-12 10:16] VITALS: BP 128/73; PULSE 70
== END 2023-03-12 10:27 | disposition home or self-care (01) ==
LOC: ORWHC2ENDO 08:35
PROVIDERS: ATTEND Internal Medicine Gastroenterology
DX: K50.10 Crohn's disease of large intestine without complications (principal); F17.200 Nicotine dependence, unspecified, uncomplicated; E11.9 Type 2 diabetes mellitus without complications; Z79.899 Other long term (current) drug therapy
CPT/HCPCS: 88305; 45380; J2704

== ENCOUNTER → 2024-02-18 | Outpatient (CLI) | payer BC | END | disposition home or self-care (01) | LOC: LABWHC1 09:10 | PROVIDERS: ATTEND Internal Medicine Gastroenterology | DX: K50.80 Crohn's disease of both small and large intestine without complications (principal) | CPT/HCPCS: 36415; 86480 ==